=== PATIENT | male | born 1990 | race Two or more races ===

== ENCOUNTER 2017-04-18 16:33 | Emergency (ER) | payer OTHER ==
[~2017-04-18] VITALS: Ht 182.9 cm; Wt 88.5 kg
[2017-04-18 16:59] VITALS: BP 118/81
[2017-04-18] MEDS ORDERED: LORazepam 1mg tab ORAL ONE (17:00)
--- NOTE | 2017-04-18 17:45 | Emergency Room Report ---
History of Present Illness General Chief Complaint: Seizure Source: Patient Present Illness HPI 26YOM BIBEMS after alleged seizure after smoking marijuana. Patient states "I'm addicted to marijuana, I smoke every day." Endorses always "feeling anxious so I smoke marijuana. And then I feel anxious after smoking marijuana." States usually can "control my symptoms" but today I fell. No previous history of seizures. Never been diagnosed with epilepsy Not on medication Allergies: Coded Allergies: No Known Allergies (Unverified , 04/18/17) Patient History Past Medical History: none Past Surgical History: none Pertinent Family History: none Social History: Reports: drug use, smoking Nursing Documentation-[facility] Past Medical History: No Stated History Review of Systems All Other Systems: negative except mentioned in HPI Physical Exam Vital Signs Date Time Temp Pulse Resp B/P Pulse Ox O2 Delivery O2 Flow Rate FiO2 04/18/17 16:40 98.2 94 15 118/81 98 Room Air Sp02 EP Interpretation: reviewed, normal General Appearance: normal inspection, well appearing, no apparent distress, alert Head: normocephalic, other - Multiple areas of abrasions and contusions to face. Most prominent right andrew-orbital. Also significant swelling to right upper lip. No actual lacerations. Teeth intact. EOMI. PERRLA. No neck ttp Eyes: bilateral eye EOMI, bilateral eye PERRL ENT: normal ENT inspection, hearing grossly normal, normal voice Neck: normal inspection, full range of motion, supple, no bony tend Respiratory: normal inspection, lungs clear, normal breath sounds, no respiratory distress, no retraction, no wheezing Cardiovascular #1: regular rate, rhythm, no edema Gastrointestinal: normal inspection, normal bowel sounds, non tender, soft, no guarding, no hernia Genitourinary: no CVA tenderness Musculoskeletal: normal inspection, back normal, normal range of motion, Carol' s Sign negative Neurologic: normal inspection, alert, oriented x3, responsive, field health officer III-XII nml as tested, motor strength/tone normal, speech normal Psychiatric: normal inspection, judgement/insight normal, mood/affect normal Skin: normal inspection, normal color, no rash Lymphatic: normal inspection Medical Decision Making Diagnostic Impression: Primary Impression: Marijuana abuse Additional Impressions: Marijuana dependence Facial trauma Qualified Codes: S09.93XA - Unspecified injury of face, initial encounter Traumatic ecchymosis of face Qualified Codes: S00.83XA - Contusion of other part of head, initial encounter ER Course - VSS. Afebrile. - Wounds clean, bandaged - Tetanus previously updated - No additional seizures here - Patient initially refusing CT because "I'll get claustrophobic." Was given PO ativan and had CT which was negative for ICH or acute trauma to facial bones. Old fx seen (patient endorses falling previously). - Requesting "something for the anxiety" he gets to prevent him from smoking marijuana - has specific plans to go to Rehab for marijuana abuse. States he was given Xanax previously so he doesnt have to smoke MJ. - Will do short course Xanax DC home Last Vital Signs Date Time Temp Pulse Resp B/P Pulse Ox O2 Delivery O2 Flow Rate FiO2 04/18/17 17:23 98.3 04/18/17 16:59 94 15 Room Air 04/18/17 16:59 118/81 98 Status: improved Disposition: HOME, SELF-CARE Scripts Alprazolam* (XANAX*) 0.25 Mg Tablet 0.25 MG ORAL QHS Y for For Anxiety for 10 Days, #10 TAB Prov: CAROL HUTCHINS M.D. 04/18/17 Referrals: NOT [facility]OSEN [facility]/,REFERRING (PCP) CAROL HUTCHINS M.D. Apr 18, 2017 17:45
[2017-04-18 18:00] VITALS: BP 120/70
[2017-04-18] MEDS ORDERED: ALPRAZOLAM0.25 MG ORAL (18:18)
[2017-04-18 18:22] VITALS: BP 118/81
--- NOTE | 2017-04-19 09:08 | Diagnostic Imaging Report ---
Indication: PAIN Technique: Continuous helical scanning was performed through the facial bones without contrast material. Axial and coronal 3 mm slices were generated. Dose: Total Dose Length Product - DLP [address] Dose Index - CTDIvol(s) 28.19 mGy. Findings: Examination demonstrates depression of the left lamina papyracea without soft tissue swelling consistent with an old fracture. The remainder the bony structures are intact. No acute fracture. No evidence of bone destruction. The ostiomeatal units are clear. Demonstrated portions of the paranasal sinuses are unremarkable. The orbits are otherwise normal. Impression: Old left lamina papyracea fracture. Otherwise negative. No acute abnormality. The CT scanner at [facility] is accredited by the [employer] and the scans are performed using protocols designed to limit radiation exposure to as low as reasonably achievable to attain images of sufficient resolution adequate for diagnostic evaluation.
== END 2017-04-18 18:27 | disposition home or self-care (01) ==
LOC: EMR 17:35
DX: F12.20 Cannabis dependence, uncomplicated (principal); S00.83XA Contusion of other part of head, initial encounter; S00.81XA Abrasion of other part of head, initial encounter; W19.XXXA Unspecified fall, initial encounter; Y92.89 Other specified places as the place of occurrence of the external cause
CPT/HCPCS: 70486; 99283

== ENCOUNTER 2017-04-19 20:50 | Emergency (ER) | payer OTHER ==
[~2017-04-19] VITALS: Ht 182.9 cm; Wt 90.7 kg
[~2017-04-19 20:50] MED LIST: ALPRAZOLAM0.25 MG ORAL
--- NOTE | 2017-04-19 21:21 | Emergency Room Report ---
History of Present Illness General Chief Complaint: General Complaint Source: Patient Present Illness HPI Is 26-year-old male with a history of marijuana dependence and abuse. He had facial trauma question the seizure yesterday. Was seen here. CT face was negative for acute fracture. He present here today because he had a tongue laceration/abrasion occur yesterday. He said is painful. Hurts from the. Denies any other complaint. No fever chills but no nausea no vomiting. No new seizure. No trauma since yesterday. Allergies: Coded Allergies: No Known Allergies (Unverified , 04/18/17) Patient History Past Medical History: see triage record, old chart reviewed Past Surgical History: other Pertinent Family History: none Social History: Reports: drug use - Marijuana Immunizations: other Reviewed Nursing Documentation: PMH: Agreed, PSxH: Agreed Nursing Documentation-PMH Past Medical History: No Stated History History Of Psychiatric Problem: Yes - ANXIETY Review of Systems Eye: Denies: blurred vision, eye pain ENT: Denies: ear pain, nose congestion, throat swelling Respiratory: Denies: cough, shortness of breath Cardiovascular: Denies: chest pain, palpitations Gastrointestinal: Denies: abdominal pain, diarrhea, nausea, vomiting Musculoskeletal: Denies: back pain, joint pain Skin: Denies: rash Neurological: Denies: headache, numbness Endocrine: Denies: increased thirst, increased urine Hematologic/Lymphatic: Denies: easy bruising All Other Systems: negative except mentioned in HPI Physical Exam Vital Signs Date Time Temp Pulse Resp B/P Pulse Ox O2 Delivery O2 Flow Rate FiO2 04/19/17 21:00 98.2 94 16 126/56 96 Room Air vitals normal Sp02 EP Interpretation: reviewed, normal General Appearance: well appearing, no apparent distress, alert Head: normocephalic, atraumatic Eyes: bilateral eye EOMI, bilateral eye PERRL ENT: hearing grossly normal, normal pharynx, other - Some abrasion the lateral aspect of the left side Neck: full range of motion, supple, no meningismus Respiratory: chest non-tender, lungs clear, normal breath sounds Cardiovascular #1: regular rate, rhythm, no murmur Gastrointestinal: normal bowel sounds, non tender, no mass, no organomegaly, no bruit, non-distended Musculoskeletal: back normal, gait/station normal, normal range of motion Psychiatric: mood/affect normal Skin: warm/dry Medical Decision Making Diagnostic Impression: Primary Impression: Abrasion of tongue Qualified Codes: S00.512A - Abrasion of oral cavity, initial encounter ER Course Patient with tongue abrasion secondary to or trauma from trauma yesterday. Is not infected. No need for suturing. We'll discharge home with reassurance. Told patient to eat soft food. Last Vital Signs Date Time Temp Pulse Resp B/P Pulse Ox O2 Delivery O2 Flow Rate FiO2 04/19/17 21:00 98.2 94 16 126/56 96 Room Air Status: unchanged Disposition: HOME, SELF-CARE Condition: Stable Additional Instructions: Followup with your doctor as needed 7 days. Eat soft food. Return if worse. Abstain from drugs and alcohol. ROXANA ESPINOSA M.D. Apr 19, 2017 21:21
[2017-04-19 21:30] VITALS: BP 126/56
== END 2017-04-19 21:30 | disposition home or self-care (01) ==
LOC: EMR 21:16
DX: S00.512A Abrasion of oral cavity, initial encounter (principal); F41.9 Anxiety disorder, unspecified; F12.10 Cannabis abuse, uncomplicated; X58.XXXA Exposure to other specified factors, initial encounter; Y92.9 Unspecified place or not applicable
CPT/HCPCS: 99282

== ENCOUNTER 2017-06-10 13:04 | Emergency (ER) | payer OTHER ==
[~2017-06-10] VITALS: Ht 182.9 cm; Wt 88.5 kg
[2017-06-10] MEDS ORDERED: Lidocaine 1% 10mg/ml/Epi 0.005mg/ml 30ml vial INJ ONE (13:45)
[2017-06-10 14:40] LABS: APPEARANCE,URINE CLEAR; KETONES,URINE 1+ (NEGATIVE); LEUKOCYTE ESTERASE ,URINE 1+ (NEGATIVE); NITRITE,URINE NEGATIVE (NEGATIVE); PH,URINE 7 (4.5-8.0); PROTEIN,URINE 1+ (NEGATIVE); UROBILINOGEN,URINE 1 MG/DL (0.0-1.0)
[2017-06-10 14:43] LABS: MEAN CORPUSCULAR HEMOGLOBIN 31.9 PG (27.0-31.0); MEAN CORPUSCULAR VOLUME 94 FL (80-99); MEAN PLATELET VOLUME 6.7 FL (6.5-10.1); PLATELET COUNT 248 K/UL (150-450); RED BLOOD COUNT 4.55 M/UL (4.70-6.10); WHITE BLOOD COUNT 17.2 K/UL (4.8-10.8)
[2017-06-10 14:51] LABS: AMORPHOUS SEDIMENT,UR MODERATE /LPF; BACTERIA,URINE OCCASIONAL /HPF; MUCUS,URINE FEW /LPF (NONE/OCC); RBC,URINE 0-2 /HPF (0 - 0); SQUAMOUS EPITHELIAL CELL,UR OCCASIONAL /LPF (NONE/OCC); WBC,URINE 0-2 /HPF (0 - 0)
--- NOTE | 2017-06-10 14:52 | Diagnostic Imaging Report ---
Indication: Headache Technique: Contiguous 5 mm thick transaxial imaging of the head obtained in a Siemens Sensation [address] scanner. Soft tissue and bone windows generated. Total Dose length Product (DLP): [address] Dose Index Volume (CTDIvol): 70.38, 0.15 mGy Comparison: none Findings: The size and configuration of the cortical sulci, basal cisterns, and ventricles are within normal limits for age. There is no mass effect, midline shift, or edema identified. There is no evidence of acute hemorrhage. In the lateral aspect of the right temporal lobe in the middle cranial fossa there is a small CSF intensity cleft that appears to connect with the surface of the temporal lobe extending toward the temporal horn of the right lateral ventricle. There is no definite communication between this cleft and the temporal horn. Not certain of the etiology of this finding, which may be better evaluated with MRI. This is probably incidental. One should correlate for any history of seizure. Neurology referral is suggested. The bones and soft tissues are unremarkable. Impression: No mass effect, edema or acute bleed. 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 This appears intra-axial. Differential diagnosis includes small focus of nonspecific encephalomalacia from a previous insult, a porencephalic cyst, or schizencephaly. Neurology referral and MRI is suggested and may be obtained on a nonemergent basis. The CT scanner at [facility] is accredited by the [employer] and the scans are performed using dose optimization techniques as appropriate to a performed exam including Automatic Exposure control.
[2017-06-10 14:57] LABS: TROPONIN I < 0.30 ng/mL (<=0.30)
[2017-06-10 14:59] LABS: ANION GAP 14 (5-15); CALCIUM 9.4 mg/dL (8.6-10.2); CARBON DIOXIDE 26 mEQ/L (20-30); CHLORIDE 99 mEQ/L (98-107); CREATININE 1.2 mg/dL (0.7-1.2); GLOMERULAR FILTRATION RATE > 60 mL/min (>60); HEMOLYSIS 10; POTASSIUM 3.6 mEQ/L (3.4-4.9); SODIUM 139 mEQ/L (135-145)
--- NOTE | 2017-06-10 14:59 | Diagnostic Imaging Report ---
Indication: Trauma Technique: Continuous helical transaxial imaging of the maxillofacial structures obtained without intravenous contrast administration. Coronal 2-D reformats were also obtained. Study obtained in a Siemens sensation [address] Total Dose length Product (DLP): [address] Dose Index Volume (CTDIvol): 28 mGy Comparison: None Findings: There is no evidence of an acute fracture. Paranasal sinuses and mastoids are clear. Soft tissues are unremarkable. The study is degraded by motion. There is a probable old fracture of the left medial orbital wall. The orbits appear symmetric and normal. There is no proptosis or retrobulbar hemorrhage. Mastoids are clear bilaterally. Impression: No acute fracture identified. Limited evaluation due to motion. Probable old fracture of the left medial orbital wall. Is The CT scanner at is accredited by the [employer] and the scans are performed using dose optimization techniques as appropriate to a performed exam including Automatic Exposure control.
[2017-06-10 15:09] LABS: CKMB 4.9 ng/mL (< 6.7)
--- NOTE | 2017-06-10 15:27 | Emergency Room Report ---
History of Present Illness General Chief Complaint: Laceration Source: Patient Present Illness HPI 26 YO male presents to the emergency department complaining of laceration to the lip with broken front teeth and swelling and bruising to the right side of his head. Patient status post syncopal episode. Patient denies a history of syncope he states he is vomiting twice this morning, felt dizzy in the kitchen and woke up on the ground. Patient denies cardiac history, fevers, chills, diarrhea or constipation. Patient denies dizziness now. Denies taking blood thinning medications. Patient states he is up-to-date with tetanus. Patient reports marijuana use denies other substance use. Denies history of seizures. Denies pain or paresis elsewhere on the body. Denies CP, Palpitations, LOC, AMS , dizziness, Changes in Vision, Sensation, paresthesias, or a sudden severe headache. Allergies: Coded Allergies: No Known Allergies (Unverified , 04/18/17) Patient History Past Medical History: see triage record Past Surgical History: none Pertinent Family History: none Immunizations: UTD Reviewed Nursing Documentation: PMH: Agreed, PSxH: Agreed Nursing Documentation-PMH Past Medical History: No Stated History Review of Systems All Other Systems: negative except mentioned in HPI Physical Exam Vital Signs Date Time Temp Pulse Resp B/P (MAP) Pulse Ox O2 Delivery O2 Flow Rate FiO2 06/10/17 13:07 98.4 87 18 98 Sp02 EP Interpretation: reviewed, normal General Appearance: no apparent distress, alert, GCS 15, non-toxic Head: other - Stellate Right upper Lip laceration approx 2 cm in length , Right temporal forehead contusion Eyes: bilateral eye normal inspection, bilateral eye PERRL, bilateral eye EOMI ENT: hearing grossly normal, normal voice, other - the front two upper teeth are chipped, the nerve is not visualized, some tenderness to percussion, teeth are not loose. Neck: full range of motion, no bony tend Respiratory: chest non-tender, lungs clear, normal breath sounds, speaking full sentences Cardiovascular #1: regular rate, rhythm Gastrointestinal: normal bowel sounds, non tender, soft, no guarding, no rebound Musculoskeletal: back normal, gait/station normal, normal range of motion, tender - Right forehead TTP, and TTP to the right upper jaw. Neurologic: alert, oriented x3, responsive, motor strength/tone normal, sensory intact, cerebellar normal, normal gait, speech normal, no pronator Psychiatric: judgement/insight normal, memory normal, mood/affect normal Skin: warm/dry, palpation normal, well hydrated, other - Contusion and abrasion to the right side of the forehead. , laceration - Stellate Right upper Lip laceration approx 2 cm in length , Right temporal forehead contusion Procedures Laceration/Wound Repair Laceration/Wound Repair : Consent: Verbal Wound Location: face - upper right side of the lip Wound's Depth, Shape: stellate Wound Length (cm): 2 Wound Explored: clean Irrigated w/ Saline (ccs): 500 Anesthesia: Lidocaine w/ Epi Volume Anesthetic (ccs): 2 Wound Debrided: minimal Wound Repaired With: sutures - dissolving Suture Size/Type: 5:0 Patient Tolerated: Well Complications: None Medical Decision Making PA Attestation Dr. read is my supervising Physician whom patient management has been discussed with. Diagnostic Impression: Primary Impression: Lip laceration Qualified Codes: S01.511A - Laceration without foreign body of lip, initial encounter Additional Impressions: Head contusion Qualified Codes: S00.83XA - Contusion of other part of head, initial encounter Fall Qualified Codes: W19.XXXA - Unspecified fall, initial encounter ER Course 26 YO male presents to the emergency department complaining of laceration to the lip with broken front teeth and swelling and bruising to the right side of his head. Patient status post syncopal episode. Patient denies a history of syncope he states he is vomiting twice this morning, felt dizzy in the kitchen and woke up on the ground. Patient denies cardiac history, fevers, chills, diarrhea or constipation. Patient denies dizziness now. Denies taking blood thinning medications. Patient states he is up-to-date with tetanus. Patient reports marijuana use denies other substance use. Denies history of seizures. Denies pain or paresis elsewhere on the body. Denies CP, Palpitations, LOC, AMS , dizziness, Changes in Vision, Sensation, paresthesias, or a sudden severe headache. Ddx considered but are not limited to laceration, tooth avulsion, fracture, subdural hematoma, intracranial bleed, cardiac pathology , hypovolemia just to name a few. Vital signs: are WNL, pt. is afebrile H&PE are most consistent with: Stellate Right upper Lip laceration approx 2 cm in length , Right temporal forehead contusion - will do Syncope work up due to extent of facial trauma. ORDERS: -Syncopal Work up: Troponins, Ck MB, BMP: WNL - - EK BPM NSR - no acute ST changes reviewed by Dr. Vides, this interpretation was scribed by HOMERO Marie -CBC: elevated wbc's most likely transient due to trauma - UA: Unremarkable -UDS: positive for THC - Orthostatic Vital Signs: Negative CT Head No Contrast: No acute hemorrhage or fractures, incidental finding most likely a cyst which requires neurological evaluation on a non-emergent basis- Per official Radiology report. -CT Facial Bones No Contrast: NO evidence of acute fractures per official radiology report. ED INTERVENTIONS: -1000cc NS Bolus IV -Tylenol PO - The wound was copiously irrigated with normal saline, and explored for foreign body for which no FB was found. - pt. is anesthetized with 1%lidocaine w. epi. - Phone consultation with Dr. López plastic surgery : recommended chromic sutures. - The wound was approximated and closed using 6 interrupted 5.0 chromic dissolving sutures. -Bacitracin and sterile dressing is applied. Discussed with patient: That we make every effort to approximate the laceration as best as we can so that scarring will be as cosmetically pleasing as possible with our limited cosmetic skill set in the Emergency dept. Regardless of our best efforts there will be scarring after laceration repair. The extent of scarring is unknown at this time. DISCHARGE: At this time pt. is stable for d/c to home. Will provide printed patient care instructions, and any necessary prescriptions. Care plan and follow up instructions have been discussed with the patient prior to discharge. Labs Test 06/10/17 14:00 White Blood Count 17.2 K/UL (4.8-10.8) Red Blood Count 4.55 M/UL (4.70-6.10) Hemoglobin 14.5 G/DL (14.2-18.0) Hematocrit 42.6 % (42.0-52.0) Mean Corpuscular Volume 94 FL (80-99) Mean Corpuscular Hemoglobin 31.9 PG (27.0-31.0) Mean Corpuscular Hemoglobin Concent 34.0 G/DL (32.0-36.0) Red Cell Distribution Width 11.0 % (11.6-14.8) Platelet Count 248 K/UL (150-450) Mean Platelet Volume 6.7 FL (6.5-10.1) Neutrophils (%) (Auto) % (45.0-75.0) Lymphocytes (%) (Auto) % (20.0-45.0) Monocytes (%) (Auto) % (1.0-10.0) Eosinophils (%) (Auto) % (0.0-3.0) Basophils (%) (Auto) % (0.0-2.0) Differential Total Cells Counted 100 Neutrophils % (Manual) 94 % (45-75) Lymphocytes % (Manual) 2 % (20-45) Monocytes % (Manual) 4 % (1-10) Eosinophils % (Manual) 0 % (0-3) Basophils % (Manual) 0 % (0-2) Band Neutrophils 0 % (0-8) Nucleated Red Blood Cells 1 /100 WBC Platelet Estimate Adequate Platelet Morphology Normal Red Blood Cell Morphology Normal Urine Color Yellow Urine Appearance Clear Urine pH 7 (4.5-8.0) Urine Specific [place] 1.010 (1.005-1.035) Urine Protein 1+ (NEGATIVE) Urine Glucose (UA) Negative (NEGATIVE) Urine Ketones 1+ (NEGATIVE) Urine Occult Blood Negative (NEGATIVE) Urine Nitrite Negative (NEGATIVE) Urine Bilirubin Negative (NEGATIVE) Urine Urobilinogen 1 MG/DL (0.0-1.0) Urine Leukocyte Esterase 1+ (NEGATIVE) Urine RBC 0-2 /HPF (0 - 0) Urine WBC 0-2 /HPF (0 - 0) Urine Squamous Epithelial Cells Occasional /LPF Urine Amorphous Sediment Moderate /LPF (NONE) Urine Bacteria Occasional /HPF (NONE) Urine Mucus Few /LPF (NONE/OCC) Sodium Level 139 mEQ/L (135-145) Potassium Level 3.6 mEQ/L (3.4-4.9) Chloride Level 99 mEQ/L (98-107) Carbon Dioxide Level 26 mEQ/L (20-30) Anion Gap 14 (5-15) Blood Urea Nitrogen 11 mg/dL (7-23) Creatinine 1.2 mg/dL (0.7-1.2) Estimat Glomerular Filtration Rate > 60 mL/min (>60) Glucose Level 112 mg/dL (74-106) Calcium Level 9.4 mg/dL (8.6-10.2) Creatine Kinase MB 4.9 ng/mL (< 6.7) Troponin I < 0.30 ng/mL (<=0.30) Urine Opiates Screen Negative (NEGATIVE) Urine Barbiturates Screen Negative (NEGATIVE) Phencyclidine (PCP) Screen Negative (NEGATIVE) Urine Amphetamines Screen Negative (NEGATIVE) Urine Benzodiazepines Screen Negative (NEGATIVE) Urine Cocaine Screen Negative (NEGATIVE) Urine Marijuana (THC) Screen Positive (NEGATIVE) EKG Diagnostic Results EP Interpretation: Dr. Vides Rate: normal - 71 BPM Rhythm: NSR ST Segments: no acute changes ASA given to the pt in ED: No PA Scribe Text this interpretation performed by Dr. Vides was scribed by HOMERO Marie Last Vital Signs Date Time Temp Pulse Resp B/P (MAP) Pulse Ox O2 Delivery O2 Flow Rate FiO2 06/10/17 14:47 98.4 06/10/17 13:16 18 98 06/10/17 13:07 87 Disposition: HOME, SELF-CARE Condition: Stable Scripts Acetaminophen* (TYLENOL EXTRA STRENGTH*) 500 Mg Tablet 500 MG ORAL Q6H, #20 TAB 0 Refills Prov: Cheli Marie.ASneha 06/10/17 Bacitracin/Polymyxin B Sulfate (BACITRACIN-POLYMYXIN OINTMENT) 28.35 Gm Oint...g. 1 APPLIC TP BID, #28.3 GM Prov: Cheli Marie P.ASneha 06/10/17 Amoxicillin* (AMOXIL*) 500 Mg Capsule 500 MG ORAL BID for 7 Days, #14 CAP Prov: Cheli Marie 06/10/17 Referrals: [facility],REFERRING (PCP) Patient Instructions: Contusion, Facial Laceration Additional Instructions: Take medications as directed. Follow up with a Primary Care Provider in 3-5 days, even if your symptoms have resolved. NEUROLOGIST EVALUATION RECOMMENDED : CT Abnormality: Temporal Lobe Cyst ( possible) MRI may be required. --Please review list of primary care clinics, if you do not already have a primary care provider Return sooner to ED if new symptoms occur, or current symptoms become worse. Discontinue Use of Marijuana, review list of mental health resources for evaluation of your anxiety, and substance use. - Please note that this Emergency Department Report was dictated using [employer] statistical clerk technology software, occasionally this can lead to erroneous entry secondary to interpretation by the dictation equipment. Cheli Marie Jun 10, 2017 15:27
[2017-06-10] MEDS ORDERED: BACITRACIN-P28.35 GM TP (15:28)
[2017-06-10] MEDS ORDERED: AMOXICILLIN500 MG ORAL (15:28)
[2017-06-10] MEDS ORDERED: Bacitracin Oint UD TOPIC ONE (15:30)
[2017-06-10 15:33] VITALS: BP_SYST 115; BP_SYST 118; BP_SYST 121; BP_DIAS 71; BP_DIAS 76; BP_DIAS 77
[2017-06-10] MEDS ORDERED: TYLENOL EXTRA500 MG ORAL (15:33)
[2017-06-10 15:40] VITALS: BP 115/76
[2017-06-10 15:47] LABS: LYMPHOCYTES % (MANUAL) 2 % (20-45); NEUTROPHILS % (MANUAL) 94 % (45-75); NUCLEATED RED BLOOD CELLS 1 /100 WBC; TOTAL CELLS COUNTED 100
[2017-06-10 15:48] LABS: BAND NEUTROPHILS % (MANUAL) 0 % (0-8); BASOPHILS % (MANUAL) 0 % (0-2); EOSINOPHILS % (MANUAL) 0 % (0-3); PLATELET ESTIMATE ADEQUATE; PLATELET MORPHOLOGY NORMAL
--- NOTE | 2017-06-14 15:44 | Cardiology Report ---
APPROVED REPORT EKG Measurement Heart [id number] FL [id number] Normal sinus rhythm with sinus arrhythmia Normal ECG
== END 2017-06-10 15:44 | disposition home or self-care (01) ==
LOC: EMR 13:41
DX: S01.511A Laceration without foreign body of lip, initial encounter (principal); S02.5XXA Fracture of tooth (traumatic), initial encounter for closed fracture; S00.83XA Contusion of other part of head, initial encounter; S00.81XA Abrasion of other part of head, initial encounter; W19.XXXA Unspecified fall, initial encounter; Y92.9 Unspecified place or not applicable
CPT/HCPCS: 12011; 36415; 70450; 70486; 80048; 80300; 81003; 82553; 84484; 85007; 85025; 93005; 96360; 99284; Z7502; 64450; 96374

== ENCOUNTER 2019-01-11 14:43 | Emergency (ER) | payer MEDICAID, OTHER ==
[~2019-01-11] VITALS: Ht 180.3 cm; Wt 81.6 kg
[~2019-01-11 14:43] MED LIST changes: +AMOXICILLIN500 MG ORAL; +BACITRACIN-P28.35 GM TP; +TYLENOL EXTRA500 MG ORAL
--- NOTE | 2019-01-11 14:45 | NUR ---
ED Nurse Note: Patient brought in by ambulance from home. patient's father witnessed patient shaking in the bathroom floor. his face with blood noted patient's brother at bedside. alert and awake x3. Patient reports that he is anxious.
[2019-01-11] MEDS ORDERED: LORazepam 0.5mg tab ORAL ONE (15:00)
[2019-01-11] MEDS ORDERED: levETIRAcetam 500 MG in D5W 110 ML IV ONE (15:00)
[2019-01-11] MEDS ORDERED: LORazepam Inj 2mg/ml 1ml IV ONE (15:15)
[2019-01-11 15:19] LABS: HEMATOCRIT 43.8 % (42.0-52.0); MEAN CORPUSCULAR VOLUME 90 FL (80-99); PLATELET COUNT 285 K/UL (150-450); RED BLOOD COUNT 4.88 M/UL (4.70-6.10); RED CELL DISTRIBUTION WIDTH 11.9 % (11.6-14.8); WHITE BLOOD COUNT 19.9 K/UL (4.8-10.8)
[2019-01-11 15:23] VITALS: BP 101/70
--- NOTE | 2019-01-11 15:32 | Emergency Room Report ---
History of Present Illness General Chief Complaint: Seizure Source: Patient, Family Member Present Illness HPI This patient was observed to have a tonoclonic seizure. The father was the witness and was not available. The patient's brother was bedside had not witnessed the event. The patient has had seizures in the past. He is on Klonopin and Cymbalta according to him for his seizures. He did take his medications today. He states he hasn't had a seizure in about a year. He states he was in the bathroom when he became very lightheaded. Is the last thing he remembers. According to EMS he subsequently had a tonic clonic seizure and hit his head and face on the floor. The patient complains of nausea and vomiting at this time. He also has headache. He denies neck pain. He denies chest pain or shortness of breath. He denies abdominal pain. He does seem agitated and has difficulty staying on subject during our conversation. He admits to using marijuana but denies alcohol or other drug use. He denies recent illness. Denies fever or chills. Tetanus is up-to-date. Allergies: Coded Allergies: No Known Allergies (Unverified , 04/18/17) Patient History Past Medical History: see triage record, seizures Social History: Reports: drug use - THC; Denies: smoking, alcohol use Reviewed Nursing Documentation: PMH: Agreed; PSxH: Agreed Review of Systems All Other Systems: negative except mentioned in HPI Physical Exam Vital Signs Date Time Temp Pulse Resp B/P (MAP) Pulse Ox O2 Delivery O2 Flow Rate FiO2 01/11/19 14:38 97.7 86 17 110/35 98 Room Air Sp02 EP Interpretation: reviewed, normal General Appearance: no apparent distress, alert, GCS 15, other - agitated, Restless, difficulty following conversation. Head: normocephalic, other - Bleeding from now, 2cm laceration R. forehead. Eyes: bilateral eye normal inspection, bilateral eye PERRL ENT: hearing grossly normal, normal pharynx, no angioedema, normal voice Neck: full range of motion, supple/symm/no masses Respiratory: chest non-tender, lungs clear, normal breath sounds, no respiratory distress, no retraction, no accessory muscle use, speaking full sentences Cardiovascular #1: regular rate, rhythm, no edema Gastrointestinal: normal bowel sounds, non tender, soft, non-distended, no guarding, no rebound Rectal: deferred Musculoskeletal: back normal, normal range of motion, non-tender Neurologic: alert, oriented x3, responsive, motor strength/tone normal, sensory intact, speech normal, grossly normal Psychiatric: no suicidal/homicidal ideation, anxious, other - Restless Skin: warm/dry, well hydrated, other - See above in head exam Medical Decision Making Diagnostic Impression: Primary Impression: Epileptic seizure, generalized Additional Impression: Forehead laceration ER Course I suspect the seizures that the patient is presenting with is non-emergent in etiology. The patient has a history of seizures in the past and has returned to baseline with normal neurologic status. The patient is not immunocompromised with no history of known structural brain disease. The patient does not have persistent altered mental status, fever or new focal neurologic deficit. I doubt meningitis so a lumbar puncture was not performed. The patient was counseled that, though unlikely, the possibility of an emergent cause of seizure may still be present and that the patient should return immediately if symptoms persist or worsen. The patient states he is on Klonopin and Cymbalta for seizures. Neither of these are antiseizure medications. I will start this patient on Keppra as a precaution and have him follow up closely with neurology and his primary care physician. I believe the patient is stable for discharge to followup with the primary care provider for further workup. Laboratory Tests Test 01/11/19 14:53 01/11/19 15:33 White Blood Count 19.9 K/UL (4.8-10.8) H Red Blood Count 4.88 M/UL (4.70-6.10) Hemoglobin 15.0 G/DL (14.2-18.0) Hematocrit 43.8 % (42.0-52.0) Mean Corpuscular Volume 90 FL (80-99) Mean Corpuscular Hemoglobin 30.8 PG (27.0-31.0) Mean Corpuscular Hemoglobin Concent 34.3 G/DL (32.0-36.0) Red Cell Distribution Width 11.9 % (11.6-14.8) Platelet Count 285 K/UL (150-450) Mean Platelet Volume 6.1 FL (6.5-10.1) L Neutrophils (%) (Auto) % (45.0-75.0) Lymphocytes (%) (Auto) % (20.0-45.0) Monocytes (%) (Auto) % (1.0-10.0) Eosinophils (%) (Auto) % (0.0-3.0) Basophils (%) (Auto) % (0.0-2.0) Differential Total Cells Counted 100 Neutrophils % (Manual) 92 % (45-75) H Lymphocytes % (Manual) 5 % (20-45) L Monocytes % (Manual) 2 % (1-10) Eosinophils % (Manual) 0 % (0-3) Basophils % (Manual) 1 % (0-2) Band Neutrophils 0 % (0-8) Platelet Estimate Adequate Platelet Morphology Normal Red Blood Cell Morphology Normal Sodium Level 140 MMOL/L (136-145) Potassium Level 3.4 MMOL/L (3.5-5.1) L Chloride Level 100 MMOL/L (98-107) Carbon Dioxide Level 16 MMOL/L (21-32) L Anion Gap 25 mmol/L (5-15) H Blood Urea Nitrogen 11 mg/dL (7-18) Creatinine 1.6 MG/DL (0.55-1.30) H Estimate Glomerular Filtration Rate 51.7 mL/min (>60) Glucose Level 192 MG/DL (74-106) H Calcium Level 9.3 MG/DL (8.5-10.1) Total Bilirubin 0.5 MG/DL (0.2-1.0) Aspartate Amino Transferase (AST) 21 U/L (15-37) Alanine Aminotransferase (ALT) 18 U/L (12-78) Alkaline Phosphatase 76 U/L (46-116) Total Creatine Kinase 436 U/L (26-308) H Total Protein 7.8 G/DL (6.4-8.2) Albumin 4.3 G/DL (3.4-5.0) Globulin 3.5 g/dL Albumin/Globulin Ratio 1.2 (1.0-2.7) Urine Opiates Screen Negative (NEGATIVE) Urine Barbiturates Screen Negative (NEGATIVE) Phencyclidine (PCP) Screen Negative (NEGATIVE) Urine Amphetamines Screen Negative (NEGATIVE) Urine Benzodiazepines Screen Negative (NEGATIVE) Urine Cocaine Screen Negative (NEGATIVE) Urine Marijuana (THC) Screen Positive (NEGATIVE) H Serum Alcohol < 3 mg/dL Urine Color Pale yellow Urine Appearance Slightly cloudy Urine pH 5 (4.5-8.0) Urine Specific Deal 1.015 (1.005-1.035) Urine Protein 2+ (NEGATIVE) H Urine Glucose (UA) Negative (NEGATIVE) Urine Ketones 3+ (NEGATIVE) H Urine Blood 5+ (NEGATIVE) H Urine Nitrite Negative (NEGATIVE) Urine Bilirubin Negative (NEGATIVE) Urine Urobilinogen Normal MG/DL (0.0-1.0) Urine Leukocyte Esterase Negative (NEGATIVE) Urine RBC 0-2 /HPF (0 - 0) H Urine WBC 2-4 /HPF (0 - 0) Urine Squamous Epithelial Cells Occasional /LPF Urine Bacteria Occasional /HPF (NONE) EKG Diagnostic Results Rate: normal Rhythm: NSR ST Segments: no acute changes Rhythm Strip Diag. Results EP Interpretation: yes Rate: 70's Rhythm: NSR, no PVC's, no ectopy CT/MRI/US Diagnostic Results CT/MRI/US Diagnostic Results : Imaging Test Ordered: CT head, CT max/facial bones Impression No acute findings. Specifically no intracranial bleed, mass effect or edema. See official report. CT max/facial bones: No facial fracture. See official report in electronic medical record. Last Vital Signs Date Time Temp Pulse Resp B/P (MAP) Pulse Ox O2 Delivery O2 Flow Rate FiO2 01/11/19 14:38 97.7 86 17 110/35 98 Room Air Status: improved Disposition: HOME, SELF-CARE Condition: Improved Scripts Levetiracetam (KEPPRA XR) 500 Mg Tab.er.24h 500 MG ORAL DAILY, #30 TAB 0 Refills Prov: Anita Molina DO 01/11/19 Referrals: [facility] (PCP) Patient Instructions: Seizure, Adult Anita Molina DO Jan 11, 2019 15:32
--- NOTE | 2019-01-11 15:40 | NUR ---
ED Nurse Note: patient went down for CT
[2019-01-11 15:45] LABS: APPEARANCE,URINE SLIGHTLY CLOUDY; BILIRUBIN, URINE NEGATIVE (NEGATIVE); COLOR,URINE PALE YELLOW; GLUCOSE, URINE (UA) NEGATIVE (NEGATIVE); KETONES,URINE 3+ (NEGATIVE); LEUKOCYTE ESTERASE ,URINE NEGATIVE (NEGATIVE); NITRITE,URINE NEGATIVE (NEGATIVE); PH,URINE 5 (4.5-8.0); PROTEIN,URINE 2+ (NEGATIVE); UROBILINOGEN,URINE NORMAL MG/DL (0.0-1.0)
--- NOTE | 2019-01-11 16:05 | NUR ---
ED Nurse Note: patient came back from CT
[2019-01-11 16:28] LABS: ANION GAP 25 mmol/L (5-15); BLOOD UREA NITROGEN 11 mg/dL (7-18); CARBON DIOXIDE 16 MMOL/L (21-32); CHLORIDE 100 MMOL/L (98-107); POTASSIUM 3.4 MMOL/L (3.5-5.1); SODIUM 140 MMOL/L (136-145)
[2019-01-11 16:29] LABS: ALANINE AMINOTRANSFERASE 18 U/L (12-78); ALBUMIN 4.3 G/DL (3.4-5.0); ALBUMIN/GLOBULIN RATIO 1.2 (1.0-2.7); ALKALINE PHOSPHATASE 76 U/L (46-116); ASPARTATE AMINO TRANSFERASE 21 U/L (15-37); BILIRUBIN,TOTAL 0.5 MG/DL (0.2-1.0); CALCIUM 9.3 MG/DL (8.5-10.1); CREATINE KINASE 436 U/L (26-308); CREATININE 1.6 MG/DL (0.55-1.30)
--- NOTE | 2019-01-11 16:32 | Diagnostic Imaging Report ---
Indication: Seizure Technique: Contiguous 5 mm thick transaxial imaging of the head obtained in a Siemens Sensation [address] scanner. Soft tissue and bone windows generated. Automatic Exposure Control was utilized. Total Dose length Product (DLP): 2542.[address] Dose Index Volume (CTDIvol): 70.38,28.19,16.94 mGy Comparison: 06/10/2017 Findings: There is a linear focus of low attenuation in the right temporal lobe once again demonstrated. This may or may not communicate with the temporal horn of the right lateral ventricle. There is no mass effect or edema or evidence of acute intracranial hemorrhage. There is no midline shift. The ventricles and basal cisterns appear normal. Some artifact present limiting evaluation. Osseous structures are unremarkable. IMPRESSION: No acute intracranial hemorrhage, mass effect or edema. Similar findings to the examination from 06/10/2017. Small cleft noted in the right temporal lobe may be associated with the seizure. Differential considerations include post insult encephalomalacia, schizencephaly, heterotopia or dysplastic cortex. Further clinical evaluation including MRI recommended previously. The CT scanner at [facility] is accredited by the [employer] and the scans are performed using dose optimization techniques as appropriate to a performed exam including Automatic Exposure control.
--- NOTE | 2019-01-11 16:37 | Diagnostic Imaging Report ---
Indication: Neck pain. Technique: Continuous helical imaging of the cervical spine was obtained transaxially from the skull base to the upper thoracic spine. 2-D coronal and sagittal reformatted images were obtained. Automatic Exposure Control was utilized. Total Dose length Product (DLP): 2542.[address] Dose Index Volume (CTDIvol): 70.38,28.19,16.94 mGy Comparison: None Findings: There is no evidence of an acute fracture or malalignment. Atlantoaxial alignment appears normal. Height and configuration of the vertebral bodies and intervertebral discs are within normal limits. Uncovertebral joints and facets are unremarkable. There is no soft tissue swelling. Impression: Negative cervical spine CT Study is limited by motion The CT scanner at [facility] is accredited by the [employer] and the scans are performed using dose optimization techniques as appropriate to a performed exam including Automatic Exposure control.
--- NOTE | 2019-01-11 16:38 | Diagnostic Imaging Report ---
Indication: Facial trauma and pain Technique: Continuous helical transaxial imaging of the maxillofacial structures obtained without intravenous contrast administration. Coronal 2-D reformats were also obtained. Study obtained in a Siemens sensation [address] Automatic Exposure Control was utilized. Total Dose length Product (DLP): Refer to CT head mGycm CT Dose Index Volume (CTDIvol): Refer to CT head mGy Comparison: None Findings: There is no evidence of an acute fracture. Paranasal sinuses and mastoids are clear. Soft tissues are unremarkable. There is significant motion limiting evaluation. IMPRESSION: No acute injury. Limited study The CT scanner at [facility] is accredited by the [employer] and the scans are performed using dose optimization techniques as appropriate to a performed exam including Automatic Exposure control.
[2019-01-11] MEDS ORDERED: KEPPRA XR500 MG ORAL (17:16)
[2019-01-11] MEDS ORDERED: Bacitracin Oint UD TOPIC ONE ×2 (17:27→17:30)
--- NOTE | 2019-01-11 17:40 | NUR ---
ER DISCHARGE NOTE: Patient is cleared to be discharged per ERMD, pt is aox4, on room air, with stable vital signs. pt was given dc and prescription instructions, pt was able to verbalize understanding, pt id band and iv site removed without complications. pt is able to ambulate with steady gait. pt took all belongings.
[2019-01-11 18:06] VITALS: BP 101/70
== END 2019-01-11 17:40 | disposition home or self-care (01) ==
LOC: EDBD 14:43 → EMR 14:51
DX: G40.409 Other generalized epilepsy and epileptic syndromes, not intractable, without status epilepticus (principal); S01.81XA Laceration without foreign body of other part of head, initial encounter; W19.XXXA Unspecified fall, initial encounter; Y92.002 Bathroom of unspecified non-institutional (private) residence as the place of occurrence of the external cause; M54.2 Cervicalgia
CPT/HCPCS: 36415; 70450; 70486; 72125; 80053; 80307; 80329; 81003; 82550; 82962; 85007; 85025; 93005; 96361; 96374; 96375; 99284; J1953; J2405